=== PATIENT | male | born 1955 | race Caucasian/White ===

== ENCOUNTER 2025-02-28 10:34 | Emergency (ER) | payer OTHER, MEDICARE ==
[~2025-02-28] VITALS: Ht 182.9 cm; Wt 97.0 kg
[~2025-02-28 10:34] MED LIST: CARI350T PO; DOXY-8 PO; HYDR-4353 PO; OLME20TA15 PO
[2025-02-28] MEDS ORDERED: HYDR25SU48 RC (11:14)
[2025-02-28] MEDS ORDERED: ANUHCCR RC (11:14)
[2025-02-28] MEDS ORDERED: [UNRECOGNIZED DRUG - CODE] (11:15)
--- NOTE | 2025-02-28 11:17 | RADIOLOGY REPORT ---
EXAM: DI CHEST,SINGLE VIEW HISTORY: sirs COMPARISON: None TECHNIQUE: Portable supine AP view of the chest was performed. FINDINGS: No pneumothorax, consolidative infiltrates, or pulmonary edema. The heart is not enlarged. There are postoperative changes of anterior and posterior cervical spine fusion and plate and screw fixation of the right clavicle. There is thoracic spondylosis and dextroscoliosis. IMPRESSION: No acute intrathoracic process.
[2025-02-28] MEDS ORDERED: [UNRECOGNIZED DRUG - OTHER] (11:20)
[2025-02-28] MEDS ORDERED: LOSA-415 PO (11:20)
[2025-02-28] MEDS ORDERED: BACLOFEN (11:20)
[2025-02-28] MEDS ORDERED: TEST200V33 IM (11:20)
[2025-02-28] MEDS ORDERED: PANT-47 PO (11:20)
--- NOTE | 2025-02-28 11:32 | Physician Documentation ---
History of Present Illness ~ Chief Complaint: Wound Stated Complaint: SURG SITE INFECTION Time Seen by MD: 10:52 Primary Medical Doctor: [facility], [facility] Source: patient, RN/MD (resident physician) Mode of Arrival: EMS HPI 69-year-old male history of morbid obesity, COPD presenting for surgical site infection. On February 20 he had skin reduction treatment following extensive weight loss. He has had swelling to his scrotum and ecchymosis which has been present since the surgery. He is having increasing swelling to the affected area and he was told by his wound care nurse today that he had purulence coming out of his left upper thigh staple site. He has bilateral ANGELIQUE drains with the left side draining the most. He now reports a new onset of right lower back discomfort at the site of other surgical incision. This has grossly enlarged in the last 24 hours and is now causing him discomfort Tetanus within 5 years?: Yes Medication Reconciliation Allergies: Coded Allergies: Gadolinium-Containing Contrast Medi (Verified Allergy, Unknown, 02/28/25) Iodinated Contrast Media (Verified Allergy, Unknown, 02/28/25) PT TOLERATED FOR CT SCAN AT [facility] 02/2025 codeine (Verified Allergy, Unknown, 02/28/25) morphine (Verified Allergy, Unknown, 02/28/25) Uncoded Allergies: IV DYE, IODINE CONTAINING CONTRAST (Allergy, Unknown, 05/29/14) Scheduled Hydrocortisone (Proctozone-Hc), 1 APPLIC RC Q12H, (Reported) Hydrocortisone Acetate* (Anucort-Hc Supp*), 1 SUPP RC Q12H, (Reported) Losartan Potassium* (Cozaar*), 1 TAB PO DAILY, (Reported) [diazepa/baclofen], DAILY, (Reported) Scheduled PRN Carisoprodol (Soma), 1 TABLET PO TID PRN for muscle spasms, (Reported) Miscellaneous Medications Alprostadil (Caverject), (Reported) Pantoprazole Sodium (PROTONIX tablet), 40 MG PO, (Reported) Testosterone Cypionate (TESTOSTERONE CYPIONATE 200mg/ml 10ml vial), 2,000 MG IM, (Reported) Discontinued Medications Doxycycline Hyclate* (Vibramycin*), 40 MG PO BID, (Reported) Discontinued Reason: patient no longer taking Hydrocodone Bit/Acetaminophen ([place]otuit 10-325 Tablet), 1 TAB PO Q6H PRN PAIN PRN for pain, (Reported) Discontinued Reason: patient no longer taking Olmesartan Medoxomil* (Benicar*), 40 MG PO QPM, (Reported) Discontinued Reason: patient no longer taking Past Medical History Past Medical History: Migraine, Sleep Apnea, Chronic Pain, *DERMATOLOGY*, *CANCER* Past Surgical History: cancer surgery, orthopedic surgeries, other Patient History: (DM Type 2) Diabetes mellitus type 2 MOTHER, , Age: 86, Cause: Pulmonary embolism Alcohol Use: None Drug Use: none Lives with: Spouse Lives In: Home Occupation: retired Physical Exam Vital Signs: Temperature: 97.9, Heart Rate: 92, Respiratory Rate: 14, BP: 166/101, Pulse Oximetry: 97, Weight: 97.000 Physical Exam Nontoxic Lower extremity reece in intact scattered area of maceration and surrounding erythema no purulent discharge, bilateral drains in place with blood-tinged discharge Scrotum tender ecchymotic skin intact Right lower back surgical incision well healed no purulent discharge large indurated and fluctuant area Progress Progress Note Discussed case with resident plastic surgery who agrees that this patient needs antibiotics and to be evaluated by their surgical team. Dr. Joy Burrell attending surgeon accepting physician for transfer Results/Orders Reviewed/noted all lab results: Yes Results/Orders Orders - SAMINA HERNANDEZ MD Culture Blood (02/28/25 10:56) Chest,Single View (02/28/25 10:56) Monitor (02/28/25 10:56) Oxygen (02/28/25 10:56) Saline Lock (02/28/25 10:56) Ct Lower Extremity (02/28/25 11:49) Ct Abdomen Pelvis (02/28/25 11:53) Cult Urine + [place] Ct (02/28/25 12:38) Piperacillin/Tazo 4.5gm/100ml (Zosyn 4.5 (02/28/25 20:00) Vancomycin/Ns 1 Gm Add-[place] (Vancomyc (03/01/25 01:00) Non Formulary (03/01/25 16:30) Vancomycin,Trough (03/01/25 16:30) Completed Orders - SAMINA HERNANDEZ MD Cbc/Diff (02/28/25 10:56) Chest,Single View (02/28/25 10:56) Procalcitonin (02/28/25 10:56) BMP (02/28/25 10:56) Lacticsepsis (02/28/25 10:56) ESR (02/28/25 11:49) Ct Lower Extremity (02/28/25 11:49) Ct Abdomen Pelvis (02/28/25 11:53) C-Reactive Protein (02/28/25 11:12) Oxycodone Immed Release Tablet (Oxy Ir T (02/28/25 12:15) Iohexol 300mg/Ml 50ml Inj. (Omnipaque-30 (02/28/25 12:14) Iohexol 300mg/Ml 100ml Inj. (Omnipaque-3 (02/28/25 12:14) Ua W/Microscopic, Cult If Ind (02/28/25 11:52) Oxycodone Immed Release Tablet (Oxy Ir T (02/28/25 14:05) Acetaminophen 1,000mg/100ml Iv (Ofirmev (02/28/25 14:10) Vancomycin*Pharmacy To Dose* (Vancomycin (02/28/25 15:55) Vancomycin 2gm/400ml H20 (Peg) (Vancomyc (02/28/25 16:20) Hydromorphone 0.5 Mg/0.5 Ml/Pf (Dilaudid (02/28/25 17:10) Medications Received in ER Medications (Trade) Dose Ordered Sig/Cristin Route PRN Reason Start Time Stop Time Status Last Admin Dose Admin Acetaminophen 100 ml @ 400 mls/hr ONCE ONCE IV 02/28/25 14:10 02/28/25 14:24 DC 02/28/25 14:25 400 MLS/HR Vancomycin HCl 400 ml @ 134 mls/hr ONCE ONCE IV 02/28/25 16:20 02/28/25 19:19 DC 02/28/25 17:16 134 MLS/HR (Dilaudid inj.) 0.5 mg ONCE ONCE IV 02/28/25 17:10 02/28/25 17:11 DC 02/28/25 17:21 0.5 MG Vital Signs 02/28/25 02/28/25 02/28/25 02/28/25 10:44 11:44 12:44 13:30 Temp 97.9 Pulse 92 94 95 105 Resp 14 16 16 18 B/P (MAP) 166/101 161/93 (115) 152/84 (106) 139/83 (101) Pulse Ox 97 97 95 98 O2 Flow Rate 0 02/28/25 02/28/25 02/28/25 02/28/25 14:29 15:30 17:00 17:21 Pulse 89 85 91 Resp 16 16 16 16 B/P (MAP) 134/89 (104) 124/82 (96) 148/89 (108) Pulse Ox 98 97 97 02/28/25 02/28/25 17:45 18:38 Pulse 90 Resp 16 19 B/P (MAP) 147/89 (108) Pulse Ox 96 Laboratory Tests Test 02/28/25 11:10 02/28/25 11:12 02/28/25 11:52 Lactic Acid Level 1.2 White Blood Count 14.2 H Red Blood Count 3.42 L Hemoglobin 10.1 L Hematocrit 30.7 L Mean Corpuscular Volume 89.7 Mean Corpuscular Hemoglobin 29.4 Mean Corpuscular Hemoglobin Concent 32.8 L Red Cell Distribution Width 16.2 H Platelet Count 408 Mean Platelet Volume 6.9 L Neutrophils (%) (Auto) 85.5 H Lymphocytes (%) (Auto) 5.7 L Monocytes (%) (Auto) 7.2 Eosinophils (%) (Auto) 1.4 Basophils (%) (Auto) 0.2 Neutrophils # (Auto) 12.1 H Lymphocytes # (Auto) 0.8 L Monocytes # (Auto) 1.0 H Eosinophils # (Auto) 0.2 Basophils # (Auto) 0.0 CBC Comment Erythrocyte Sedimentation Rate 49 H Sodium Level 143 Potassium Level 3.7 Chloride Level 107 Carbon Dioxide Level 25.3 Anion Gap 11 Blood Urea Nitrogen 7 Creatinine 0.76 Estimated GFR/1.73 m2 > 90 BUN/Creatinine Ratio 9.2 L Glucose Level 102 Calcium Level 8.2 L C-Reactive Protein 6.71 H Albumin 2.7 L Procalcitonin < 0.05 Chemistry Comments Urine Specimen Description Cln catch midstream Urine Color Yellow Urine Clarity Clear Urine pH 6.5 Urine Specific [place] 1.020 Urine Protein Negative Urine Glucose (UA) Negative Urine Ketones >=80 Urine Occult Blood Trace-intact Urine Nitrite Negative Urine Bilirubin Small Urine Urobilinogen 1.0 Urine Leukocyte Esterase Negative Urine RBC 0-2 Urine WBC 30-50 H Urine Squamous Epithelial Cells Few Urine Bacteria Few Urine Fine Granular Casts 0-3 Urine Mucus Few Urine Culture Indicated Indicated Volume Urine Centrifuged 10 ml Urine Comment Microbiology Date/Time Source Procedure Growth Status 02/28/25 12:38 Urine Clean Catch Midstream Urine Culture - Preliminary Culture received. Resulted 02/28/25 11:12 Blood Arm Left Blood Culture - Preliminary NEGATIVE (LESS THAN 24 HOURS) Resulted EKG/XRAY/CT/US/VASC/MRI CT : Impression Independently interpreted CT abdomen pelvis shows 6 cm right lower back abscess and fluid collection Medical Decision Making Additional info obtained from: old records Findings Discharge summary 2016 Differential Dx:Considerations: Include: Abscess, Cellulitis Departure Disposition: 02 SHORT TERM [facility]OSPITAL Impression: Primary Impression: Surgical site infection Additional Impression Text Patient presenting for wound drainage ongoing over the last few weeks as well as scrotal swelling also ongoing over the last 2 weeks. He was seen this week at [facility] where he had reported CT abdomen and pelvis as well as ultrasound of his scrotum which were unremarkable he was discharged. He reports today for persistent symptoms. He also has new surgical site swelling in his right lower back incision which is new as of the last 24 hours. On exam he has fluctuance over his right lower back surgical incision. His leg surgical incisions and staple lines are intact but wound is macerated and erythematous concerning for superficial infection. I discussed case with his plastic surgery team at the [facility] and they graciously agreed to accept him for transfer. Referrals: NO PRIMARY CARE PROVIDER (PCP) Signature Scribe Signature: na Attestation: SAMINA Pathak MD February 28, 2025 11:32
[2025-02-28 11:35] LABS: BASOPHILS % (AUTO) 0.2 % (0-1); EOSINOPHILS # (AUTO) 0.2 X10'3 (0-0.9); EOSINOPHILS % (AUTO) 1.4 % (0-6); HEMATOCRIT 30.7 % (42.0-52.0); HEMOGLOBIN 10.1 g/dl (14.0-17.9); LYMPHOCYTES # (AUTO) 0.8 X10'3 (1.1-4.8); LYMPHOCYTES % (AUTO) 5.7 % (21-51); MEAN CORPUSCULAR HEMOGLOBIN 29.4 PG (27.0-31.0); MEAN CORPUSCULAR HGB CONC 32.8 g/dL (33.0-36.5); MEAN CORPUSCULAR VOLUME 89.7 FL (78-98); MEAN PLATELET VOLUME 6.9 FL (7.4-10.4); MONOCYTES % (AUTO) 7.2 % (2-12); NEUTROPHILS # (AUTO) 12.1 X10'3 (1.8-7.7); NEUTROPHILS % (AUTO) 85.5 % (42-75); PLATELET COUNT 408 X10'3 (140-440); RED BLOOD COUNT 3.42 X10'6 (4.70-6.10); RED CELL DISTRIBUTION WIDTH 16.2 % (11.5-14.5); WHITE BLOOD COUNT 14.2 X10'3 (4.5-11.0)
[2025-02-28 11:50] LABS: ALBUMIN 2.7 G/DL (3.4-5.0); ANION GAP 11 (8-16); BLOOD UREA NITROGEN 7 MG/DL (7-18); BUN/CREATININE RATIO 9.2 (10.0-20.0); CALCIUM 8.2 MG/DL (8.5-10.1); CHLORIDE 107 MMOL/L (99-107); CREATININE 0.76 MG/DL (0.60-1.10); GLUCOSE 102 MG/DL (70-104); POTASSIUM 3.7 MMOL/L (3.5-5.1); SODIUM 143 MMOL/L (135-145); TOTAL CARBON DIOXIDE 25.3 MMOL/L (24-32); eCRCL 99 ML/MIN; eGFR > 90 ML/MIN
[2025-02-28] MEDS ORDERED: iohexol 300 MG/1 ML 50ml polymer ONE (12:14)
[2025-02-28] MEDS ORDERED: iohexol 300mg/ml 100ml inj. ONE (12:14)
[2025-02-28] MEDS ORDERED: oxyCODONE IR 5mg (immed. release) tablet PO ONE ×2 (12:15→14:05)
[2025-02-28 12:28] LABS: BILIRUBIN,URINE SMALL (Neg); CLARITY,URINE CLEAR (Clear); COLOR,URINE YELLOW (Yellow); GLUCOSE, URINE NEGATIVE (Neg); KETONES,URINE >=80 mg/dl (Neg); LEUKOCYTE ESTERASE ,URINE NEGATIVE (Neg); NITRITES, URINE NEGATIVE (Neg); OCCULT BLOOD,URINE TRACE-INTACT (Neg); PH,URINE 6.5 (4.8-8.0); PROTEIN,URINE NEGATIVE (Neg)
[2025-02-28 12:33] LABS: UA COLLECTION TYPE CLN CATCH MIDSTREAM
[2025-02-28 12:36] LABS: BACTERIA,URINE FEW /HPF (Neg); MUCUS STRANDS FEW /LPF (Neg); RBC,URINE 0-2 /HPF (0-2); SQUAMOUS EPITHELIAL CELL,UR FEW /LPF (FEW)
[2025-02-28 12:37] LABS: FINE GRANULAR CAST 0-3 /LPF (NEGATIVE); WBC,URINE 30-50 /HPF (0-4)
[2025-02-28 12:58] LABS: C-REACTIVE PROTEIN 6.71 MG/DL (0.0-0.5)
[2025-02-28] MEDS: acetaminophen 1,000mg/100ml IV 100 ML IV ONE (14:25)
--- NOTE | 2025-02-28 14:53 | RADIOLOGY REPORT ---
Exam: CT CT ABDOMEN PELVIS W/ IV CONTRAST History: Right flank surgical site infection COMPARISON: None Technique: Multidetector spiral CT of the abdomen and pelvis was performed from lung bases to pubic s ymphysis. Intravenous contrast was administered during this examination. Portal venous imaging was o btained. Axial, coronal and sagittal multiplanar reformats were performed by the technologist on a [employer] workstation. Radiation Dose : 1. Abdomen/Pelvis: CTDIvol 19.0mGy, DLP 1725.6 mGy*cm. Findings: Lung Bases: No acute or significant lung base finding. Normal heart size. No pleural or pericardial effusion. Liver: The liver is normal in size. No focal lesions. Normal hepatic vascular enhancement. Gallbladder and Biliary Tree: Unremarkable Spleen: Unremarkable Pancreas: The pancreas is normal in appearance without focal lesions or abnormal enhancement. Adrenal Glands: Unremarkable Kidneys: No hydronephrosis. Bilateral renal cysts measuring up to 4.2 cm in the left mid kidney. Bladder: Unremarkable Bowel: The stomach is grossly normal in appearance. Small bowel and colon are normal in caliber and d istribution. The appendix is not visualized; however, no secondary findings of acute appendicitis kuldip ntified. Ascites: Absent Lymphadenopathy: No mesenteric, retroperitoneal or periportal lymphadenopathy. Abdominal Wall and Mesentery: Surgical drain is present in the medial proximal left thigh with associ ated small volume ill-defined fluid and gas collections measuring approximately 9.9 x 2.5 cm. Vasculature: The visualized abdominal aorta is normal in size and caliber. Abdominal and pelvic vess els demonstrate normal enhancement. Pelvic Organs: Severe scrotal edema. 1.5 cm area of hypoattenuation in the central prostate gland may represent postsurgical change versus small prostatic abscess. Musculoskeletal: No aggressive focal bony lesions, acute fractures or dislocation. Degenerative ny es of the spine. Lumbar spinal fixation hardware. IMPRESSION: Surgical drain is present in the medial proximal left thigh with associated small volume ill-defined fluid and gas collections measuring approximately 9.9 x 2.5 cm. Severe scrotal edema. 1.5 cm area of hypoattenuation in the central prostate gland may represent postsurgical change versus small prostatic abscess. Radiation optimization: All CT scans at this facility use at least one of these dose optimization murtaza hniques: automated exposure control mA and/or kV adjustment per patient size (includes targeted exam s where dose is matched to clinical indication) or iterative reconstruction.
[2025-02-28] MEDS: VANCOMYCIN 2GM/400ML H20 (PEG) 400 ML IV ONE (17:16)
[2025-02-28] MEDS: HYDROmorphone inj. 0.5 MG/0.5 ML DISP.SYRIN IV ONE ×2 (17:21→21:27)
[2025-02-28] MEDS: piperacillin/tazo 4.5gm/100ml 100 ML IV ONE (20:41)
[2025-02-28 21:55] VITALS: BP 138/89; PULSE 88; RESP 22; TEMP 98; O2SAT 97
[2025-03-01] MEDS ORDERED: vancomycin/NS 1 GM ADD-VANTAGE 250 ML IV SCH (01:00)
[2025-03-01] MEDS ORDERED: VANCOMYCIN LEVEL IV ONE (16:30)
== END 2025-02-28 22:23 | disposition short-term general hospital (02) ==
LOC: ER 10:34
DX: T81.41XA Infection following a procedure, superficial incisional surgical site, initial encounter (principal); E11.9 Type 2 diabetes mellitus without complications; G47.30 Sleep apnea, unspecified; J44.9 Chronic obstructive pulmonary disease, unspecified; Z88.5 Allergy status to narcotic agent; Z88.8 Allergy status to other drugs, medicaments and biological substances; Z91.041 Radiographic dye allergy status; Y92.89 Other specified places as the place of occurrence of the external cause
CPT/HCPCS: 36415; 71045; 73701; 74177; 80048; 81001; 83605; 84145; 85025; 85651; 86140; 87040; 87088; 96365; 96366; 96367; 96368; 96375; 96376; 99285; J0131; J1171; J2543; J3372; J7030; Q9967

== ENCOUNTER 2025-05-23 12:18 | Outpatient (CLI) | payer MEDICARE ==
[~2025-05-23 12:18] MED LIST changes: +ANUHCCR RC; +BACLOFEN; -DOXY-8 PO; -HYDR-4353 PO; +HYDR25SU48 RC; +LOSA-415 PO; -OLME20TA15 PO; +PANT-47 PO; +TEST200V33 IM; +[UNRECOGNIZED DRUG - CODE]; +[UNRECOGNIZED DRUG - OTHER]
[2025-05-23 13:09] LABS: LEUKOCYTE ESTERASE ,URINE NEGATIVE (Neg); NITRITES, URINE NEGATIVE (Neg); OCCULT BLOOD,URINE NEGATIVE (Neg)
[2025-05-23 13:13] LABS: MEAN PLATELET VOLUME 7.7 FL (7.4-10.4); RED CELL DISTRIBUTION WIDTH 16.7 % (11.5-14.5); UA COLLECTION TYPE CLN CATCH MIDSTREAM
[2025-05-23 13:43] LABS: CHOL/HDL RATIO 3.7 (0.00-4.99); CREATININE 0.80 MG/DL (0.60-1.10); LDL CHOLESTEROL 112 MG/DL (50-100); TOTAL CARBON DIOXIDE 29.0 MMOL/L (24-32); eGFR > 90 ML/MIN
== END 2025-05-23 23:59 | disposition home or self-care (01) ==
LOC: LAB 12:18
PROVIDERS: ATTEND Nurse Practitioner Family
DX: I10 Essential (primary) hypertension (principal); K21.9 Gastro-esophageal reflux disease without esophagitis; R53.83 Other fatigue; Z79.899 Other long term (current) drug therapy
CPT/HCPCS: 36415; 80053; 80061; 81003; 84153; 84154; 84439; 84443; 85025

== ENCOUNTER 2025-05-23 12:24 | Outpatient (CLI) | payer MEDICARE ==
[2025-05-25 11:18] LABS: % FREE PSA 33.3 % (.); PROSTATE SPECIFIC AG, SERUM 0.6 ng/mL (0.0-4.0)
== END 2025-05-23 23:59 | disposition home or self-care (01) ==
LOC: LAB 12:24
PROVIDERS: ATTEND Urology
DX: C61 Malignant neoplasm of prostate (principal)
CPT/HCPCS: 36415; 84153; 84154